=== PATIENT | female | born 1975 | race Caucasian/White ===

== ENCOUNTER → 2020-06-25 10:07 | Outpatient (CLI) | payer OTHER, SELFPAY ==
--- NOTE | 2020-06-25 10:15 | DI.RAD.S_ITS ---
PROCEDURE: XR CHEST 2V INDICATIONS: CHEST PAIN TECHNIQUE: 2 views of the chest were acquired. COMPARISON: None. FINDINGS: Surgical changes and devices: None. Lungs and pleura: Lungs are clear. No pleural effusions or pneumothorax. Mediastinum: Mediastinal contours are normal. Heart size is normal. Bones and chest wall: No suspicious bony abnormalities. Soft tissues appear unremarkable. IMPRESSION: Normal for age, source of current chest pain symptoms is not seen. Dictated by: Alex Chaney M.D. on 06/25/2020 at 11:31 Approved by: Alex Chaney M.D. on 06/25/2020 at 11:31
== END ==
PROVIDERS: PCP Family Medicine; Referring Provider Family Medicine; Visit Provider Family Medicine
DX: R07.9 Chest pain, unspecified (principal)
CPT/HCPCS: 71046

== ENCOUNTER → 2020-11-08 13:12 | Outpatient (ROUT) | payer OTHER, SELFPAY ==
[2020-11-08 13:37] LABS: COVID19 -Nasal RAPID Negative (Negative)
== END ==
PROVIDERS: PCP Family Medicine; Visit Provider Family Medicine
DX: R53.83 Other fatigue (principal); Z20.822 Contact with and (suspected) exposure to COVID-19
CPT/HCPCS: 87635